=== PATIENT | male | born 1975 | race Caucasian/White ===

== ENCOUNTER 2019-08-24 11:09 | Inpatient (IN) | payer OTHER ==
--- NOTE | 2019-08-24 11:23 | BHS.RME ---
Substance Use & Tx History - Substance Use History Heroin Substance amount: 1 gram Frequency of use: Daily Substance route: Inhalation (ex: sniffing or snorting) Date of Last Use: 08/24/19 Cocaine- Powder Substance amount: 1/2 gram Frequency of use: Daily Substance route: Inhalation (ex: sniffing or snorting) Date of Last Use: 08/24/19 - Last Treatment Date of last treatment: none Physical/Psych/Mental Status - Behavior General Behavior: Increased activity (restlessness, agitation) Eye Contact: Normal - Cooperativeness Cooperativeness: Cooperative - Thinking Thought Processes: Tight, Logical, Goal Directed - Physical Health Problems Is patient presently having any pain?: No Does patient presently have any injuries (include location): No Does patient currently have a fever: No Is patient : No COWS - Scale Resting Pulse: 0= [place] 80 or Below Sweatin= No chills or Flushing Restless Observation: 0= Sits Still Pupil Size: 1= Pupils >than Normal Bone or Joint Aches: 1= Mild Discomfort Runny Nose/ Eye Tearin= Nasal Congestion GI Upset > 30mins: 1= Stomach Cramp Tremor Observation: 1= Tremor [place], Not Seen Yawning Observation: 1= 1-2x During Session Anxiety or Irritability: 2=Irritable/Anxious Goose Flesh Skin: 3=Piloerection COWS Score: 11 CIWA Nausea/Vomitin-Mild Nausea/No Vomiting Muscle Tremors: 3 Anxiety: 3 Agitation: 3 Paroxysmal Sweats: 3 Orientation: 0-Oriented Tacttile Disturbances: 0-None Auditory Disturbances: 0-None Visual Disturbances: 0-None Headache: 0-None Present CIWA-Ar Total Score: 13
--- NOTE | 2019-08-24 12:43 | HP ---
COWS - Scale Resting Pulse: 0= [place] 80 or Below Sweatin= No chills or Flushing Restless Observation: 0= Sits Still Pupil Size: 1= Pupils >than Normal Bone or Joint Aches: 1= Mild Discomfort Runny Nose/ Eye Tearin= Nasal Congestion GI Upset > 30mins: 1= Stomach Cramp Tremor Observation: 1= Tremor [place], Not Seen Yawning Observation: 1= 1-2x During Session Anxiety or Irritability: 2=Irritable/Anxious Goose Flesh Skin: 3=Piloerection COWS Score: 11 CIWA Score Nausea/Vomitin-Mild Nausea/No Vomiting Muscle Tremors: 3 Anxiety: 3 Agitation: 3 Paroxysmal Sweats: 3 Orientation: 0-Oriented Tacttile Disturbances: 0-None Auditory Disturbances: 0-None Visual Disturbances: 0-None Headache: 0-None Present CIWA-Ar Total Score: 13 - Admission Criteria OASAS Guidelines: Admission for Medically Managed Detox: Requires at least one of the followin. CIWA greater than 12 2. Seizures within the past 24 hours 3. Delirium tremens within the past 24 hours 4. Hallucinations within the past 24 hours 5. Acute intervention needed for co occurring medical disorder 6. Acute intervention needed for co occurring psychiatric disorder 7. Severe withdrawal that cannot be handled at a lower level of care (continued vomiting, continued diarrhea, abnormal vital signs) requiring intravenous medication and/or fluids 8. Admitting History and Physical - Admission Chief Complaint: "I want to better my life." History of Present Illness: 44 year old male with history of opioid dependence with withdrawal. He had been abstinence until 6 months ago attending [facility] outpatient counseling. He has not been in detox before. Heroin: 1 gram daily IN, started at age 22 and lst used 08/24/19 at 2AM. He has never overdosed but does not carry narcan Cocaine: 1/2 gram daily IN, started at age 21 and last used this morning at 2AM Nicotine; 1/2 pack daily, smoking since the age of 10 PMH: None Psurg: Lipoma removed R shoulder, L Ing Hernia Repair Psych: None Lives with girlfriend in [place]. He does had a DUI with drug possession case but no appointed court date. COWS=11 due to recent use this morning. Urine Tox: History Source: Patient Limitations to Obtaining History: No Limitations - Past Medical History Psych: Yes: Anxiety, Depression - Past Surgical History Past Surgical History: Yes: Hernia Repair Additional Past Surgical History: Lipoma removal right shoulder - Smoking History Smoking history: Current every day smoker Have you smoked in the past 12 months: Yes Aproximately how many cigarettes per day: 10 - Alcohol/Substance Use Hx Alcohol Use: Yes Number of Drinks Daily: 4 History of Substance Use: reports: Cocaine, Heroin Date of Last Use: 08/02/19 - Social History ADL: Independent Occupation: auto repair unemployed History of Recent Travel: No Admission [facility] Allergies/Adverse Reactions: Allergies Allergy/AdvReac Type Severity Reaction Status Date / Time No Known Allergies Allergy Verified 08/03/19 13:40 Exam Limitations: No Limitations - Ebola screening Have you traveled outside of the country in the last 21 days: No Have you had contact with anyone from an Ebola affected area: No Have you been sick,other than usual withdrawal symptoms: No Do you have a fever: No - Review of Systems Constitutional: Chills, Diaphoresis, Loss of Appetite EENT: reports: No Symptoms Reported Respiratory: reports: No Symptoms reported Cardiac: reports: No Symptoms Reported GI: reports: No Symptoms Reported : reports: No Symptoms Reported Musculoskeletal: reports: No Symptoms Reported Integumentary: reports: No Symptoms Reported Neuro: reports: No Symptoms reported Endocrine: reports: No Symptoms Reported Hematology: reports: No Symptoms Reported Psychiatric: reports: Judgement Intact, Mood/Affect Appropiate, Orientated x3, Anxious Other Systems: Reviewed and Negative Patient History - Patient Medical History Hx Anemia: No Hx Asthma: No Hx Chronic Obstructive Pulmonary Disease (COPD): No Hx Cancer: No Hx Cardiac Disorders: No Hx Congestive Heart Failure: No Hx Hypertension: No Hx Hypercholesterolemia: No Hx Pacemaker: No HX Cerebrovascular Accident: No Hx Seizures: No Hx Dementia: No Hx Diabetes: No Hx Gastrointestinal Disorders: No Hx Liver Disease: No Hx Genitourinary Disorders: No Hx Sexually Transmitted Disorders: No Hx Renal Disease (ESRD): No Hx Thyroid Disease: No Hx Human Immunodeficiency Virus (HIV): No Hx Hepatitis C: No Hx Depression: Yes Hx Suicide Attempt: No Hx Bipolar Disorder: No Hx Schizophrenia: No - Patient Surgical History Past Surgical History: Yes Hx Abdominal Surgery: Yes (Hernia Repair) Other Surgical History: Lipoma removal Anesthesia Reaction: No - PPD History Previous Implant?: Yes Documented Results: Negative w/o proof Implanted On Prior [facility] Admission?: No Date: 10/10/17 Results: negative PPD to be Administered?: Yes - Smoking Cessation Smoking history: Current every day smoker Have you smoked in the past 12 months: Yes Aproximately how many cigarettes per day: 10 Hx Chewing Tobacco Use: No Initiated information on smoking cessation: Yes 'Breaking Loose' booklet given: 08/24/19 - Substances abused Heroin Substance route: Inhalation Frequency: Daily Amount used: 1 gram Age of first use: 22 Date of last use: 08/24/19 Cocaine Substance route: Inhalation Frequency: Daily Amount used: 1/2 gram Age of first use: 21 Date of last use: 08/24/19 Cleared for Admission [facility] - Detox or Rehab [facility] Level of Care: Medically Managed Detox Regimen/Protocol: Methadone Claeared for Rehab Admission: No Screened but not Admitted - Documentation of Visit Screened but not Admitted: No Breathalyzer - Breathalyzer Breathalyzer: 0 Urine Drug Screen - Results Drug screen NEGATIVE: No Urine drug screen results: REAL-Cocaine, FEN-Fentanyl, MOP-Opiates Inpatient Rehab Admission - Rehab Decision to Admit Inpatient rehab admission?: No
[2019-08-24] MEDS ORDERED: ACETAMINOPHEN 325 MG TABLET (FP) PO PRN ×2 (12:49)
[2019-08-24] MEDS ORDERED: NICOTINE POLACRILEX 2 MG GUM BUC PRN (12:49)
[2019-08-24] MEDS ORDERED: MAGNESIUM HYDROX 2400MG/30ML ORAL SUSPENSION 30 ML CUP PO PRN (12:49)
[2019-08-24] MEDS ORDERED: cloNIDine HCL 0.1 MG TABLET PO PRN (12:49)
[2019-08-24] MEDS ORDERED: MAGNESIUM CITRATE 300 ML BOTTLE PO PRN (12:49)
[2019-08-24] MEDS ORDERED: METHOCARBAMOL 500 MG TABLET PO PRN (12:49)
[2019-08-24] MEDS ORDERED: MENTHOL/PHENOL 1 EACH UD MM PRN (12:49)
[2019-08-24] MEDS ORDERED: BISMUTH SUBSALICYLATE 524 MG/30 ML UD PO PRN (12:49)
[2019-08-24] MEDS ORDERED: MAG HYDROX/AL HYDROX/SIMETH 30 ML UNIT-DOSE CUP PO PRN (12:49)
[2019-08-24] MEDS ORDERED: IBUPROFEN 400 MG TABLET (FP) PO PRN (12:49)
[2019-08-24 13:35] VITALS: BMI 26.9
[2019-08-24] MEDS ORDERED: METHADONE HCL 10 MG TABLET (FOR DETOX USE ONLY) PO ONE (14:00)
[2019-08-24] MEDS ORDERED: ONDANSETRON *ODT* 4 MG TABLET SL ONE (14:00)
[2019-08-24] MEDS ORDERED: hydrOXYzine PAMOATE 25 MG CAPSULE (FP) PO SCH (14:00)
--- NOTE | 2019-08-24 14:22 | EKG ---
Test Reason : Blood Pressure : / mmHG Vent. Rate : 065 BPM Atrial Rate : 065 BPM P-R Int : 152 ms QRS Dur : 080 ms QT Int : 430 ms P-R-T Axes : 044 067 057 degrees QTc Int : 447 ms NORMAL SINUS RHYTHM NORMAL ECG NO PREVIOUS ECGS AVAILABLE Confirmed by MD Samson, Chapo ([id number]) on 08/24/2019 2:21:36 PM Referred By: Confirmed By:Chapo Davies MD
[2019-08-24] MEDS: PRENATAL VITAMINS W/ FOLIC ACID TABLET (FP) PO SCH (14:28)
[2019-08-24] MEDS: NICOTINE 7 MG/24 HOURS TOPICAL PATCH TD SCH (14:28)
[2019-08-24 17:32] LABS: HEMATOCRIT 39.8 % (35.4-49); HEMOGLOBIN 13.1 GM/dL (11.7-16.9); MCH 31.1 pg (25.7-33.7); MEAN CELL VOLUME 94.1 fl (80-96); MEAN PLT VOLUME 8.1 fl (7.5-11.1); PLATELET COUNT 318 K/MM3 (134-434); RBC 4.23 M/mm3 (4.00-5.60); RDW 14.5 % (11.9-15.9); WHITE BLOOD COUNT 6.3 K/mm3 (4.0-10.0)
[2019-08-24 17:43] LABS: ALBUMIN 4.2 g/dl (3.4-5.0); BILIRUBIN,TOTAL 0.5 mg/dL (0.2-1); BLOOD UREA NITROGEN 11.8 mg/dL (7-18); CALCIUM 9.6 mg/dL (8.5-10.1); CREATININE 0.9 mg/dL (0.55-1.3); POTASSIUM 4.2 mmol/L (3.5-5.1); TOT PROT 7.6 g/dl (6.4-8.2)
[2019-08-24] MEDS: hydrOXYzine PAMOATE 25 MG CAPSULE (FP) PO PRN (21:16)
[2019-08-24] MEDS: THIAMINE HCL 100 MG TABLET (FP) PO SCH (21:16)
[2019-08-24] MEDS: MELATONIN 5 MG TABLETS PO SCH (22:20)
[2019-08-25] MEDS ORDERED: METHADONE HCL 10 MG TABLET (FOR DETOX USE ONLY) ONE (09:03)
[2019-08-25] MEDS ORDERED: METHADONE HCL 5 MG TABLET (FOR DETOX USE ONLY) ONE (09:03)
--- NOTE | 2019-08-25 09:08 | PN ---
S COWS - Scale Resting Pulse: 0= [place] 80 or Below Sweatin= No chills or Flushing Restless Observation: 3= Extraneous Movement Pupil Size: 1= Pupils >than Normal Bone or Joint Aches: 2= Severe Diffuse Aches Runny Nose/ Eye Tearin= Runny Nose/Eyes GI Upset > 30mins: 3= Vomiting/Diarrhea Tremor Observation of Outstretched Hands: 2= Slight Tremor Visible Yawning Observation: 1= 1-2x During Session Anxiety or Irritability: 2=Irritable/Anxious Goose Flesh Skin: 0=Smooth Skin COWS Score: 16 [facility] Progress Note (SOAP) Subjective: alert,irritable,anxious,tremor,pain in the body and back,,nausea,diarrhea Objective: 08/25/19 09:07 Vital Signs Temperature 98 F 08/25/19 05:06 Pulse Rate 55 L 08/25/19 05:06 Respiratory Rate 16 08/25/19 05:06 Blood Pressure 147/87 08/25/19 05:06 O2 Sat by Pulse Oximetry (%) 99 08/25/19 05:06 Laboratory Last Values WBC 6.3 K/mm3 (4.0-10.0) 08/24/19 13:00 RBC 4.23 M/mm3 (4.00-5.60) 08/24/19 13:00 Hgb 13.1 GM/dL (11.7-16.9) 08/24/19 13:00 Hct 39.8 % (35.4-49) 08/24/19 13:00 MCV 94.1 fl (80-96) 08/24/19 13:00 MCH 31.1 pg (25.7-33.7) 08/24/19 13:00 MCHC 33.0 g/dl (32.0-35.9) 08/24/19 13:00 RDW 14.5 % (11.9-15.9) 08/24/19 13:00 Plt Count 318 K/MM3 (134-434) 08/24/19 13:00 MPV 8.1 fl (7.5-11.1) 08/24/19 13:00 Sodium 138 mmol/L (136-145) 08/24/19 13:00 Potassium 4.2 mmol/L (3.5-5.1) 08/24/19 13:00 Chloride 106 mmol/L (98-107) 08/24/19 13:00 Carbon Dioxide 26 mmol/L (21-32) 08/24/19 13:00 Anion Gap 6 MMOL/L (8-16) L 08/24/19 13:00 BUN 11.8 mg/dL (7-18) 08/24/19 13:00 Creatinine 0.9 mg/dL (0.55-1.3) 08/24/19 13:00 Est GFR (CKD-EPI)AfAm 120.81 08/24/19 13:00 Est GFR (CKD-EPI)NonAf 104.24 08/24/19 13:00 Random Glucose 107 mg/dL (74-106) H 08/24/19 13:00 Calcium 9.6 mg/dL (8.5-10.1) 08/24/19 13:00 Total Bilirubin 0.5 mg/dL (0.2-1) 08/24/19 13:00 AST 17 U/L (15-37) 08/24/19 13:00 ALT 29 U/L (13-61) 08/24/19 13:00 Alkaline Phosphatase 89 U/L (45-117) 08/24/19 13:00 Total Protein 7.6 g/dl (6.4-8.2) 08/24/19 13:00 Albumin 4.2 g/dl (3.4-5.0) 08/24/19 13:00 Syphilis Serology Non-reactive (NONREACTIVE) 08/24/19 13:00 Assessment: 08/25/19 09:07 withdrawal symptom Plan: continue detox methadone regimen,to add valum 10 mgs po q 4 hrs prn for severe withdrawal
[2019-08-25] MEDS ORDERED: METHADONE (DETOX) 20 MG, METHADONE (DETOX) 5 MG PO ONE (10:00)
[2019-08-25] MEDS: PRENATAL VITAMINS W/ FOLIC ACID TABLET (FP) PO SCH (11:08)
[2019-08-25] MEDS: NICOTINE 7 MG/24 HOURS TOPICAL PATCH TD SCH (11:08)
[2019-08-25] MEDS: THIAMINE HCL 100 MG TABLET (FP) PO SCH (22:42)
[2019-08-25] MEDS: diazePAM 5 MG TABLET PO PRN (22:42)
[2019-08-25] MEDS: MELATONIN 5 MG TABLETS PO SCH (23:11)
[2019-08-26] MEDS ORDERED: METHADONE HCL 10 MG TABLET (FOR DETOX USE ONLY) PO ONE (10:00)
--- NOTE | 2019-08-26 10:16 | PN ---
S COWS - Scale Resting Pulse: 0= [place] 80 or Below Sweatin= No chills or Flushing Restless Observation: 1= Difficult to Sit Still Pupil Size: 1= Pupils >than Normal Bone or Joint Aches: 1= Mild Discomfort Runny Nose/ Eye Tearin= Nasal Congestion GI Upset > 30mins: 2= Nausea/Diarrhea Tremor Observation of Outstretched Hands: 2= Slight Tremor Visible Yawning Observation: 1= 1-2x During Session Anxiety or Irritability: 2=Irritable/Anxious Goose Flesh Skin: 0=Smooth Skin COWS Score: 11 S Progress Note (SOAP) Subjective: alert,irritable,anxious,interrupted sleep,pain in the body and back Objective: 08/26/19 10:13 Vital Signs Temperature 98 F 08/26/19 08:55 Pulse Rate 62 08/26/19 08:55 Respiratory Rate 16 08/26/19 08:55 Blood Pressure 126/77 08/26/19 08:55 O2 Sat by Pulse Oximetry (%) 98 08/26/19 06:10 Laboratory Last Values WBC 6.3 K/mm3 (4.0-10.0) 08/24/19 13:00 RBC 4.23 M/mm3 (4.00-5.60) 08/24/19 13:00 Hgb 13.1 GM/dL (11.7-16.9) 08/24/19 13:00 Hct 39.8 % (35.4-49) 08/24/19 13:00 MCV 94.1 fl (80-96) 08/24/19 13:00 MCH 31.1 pg (25.7-33.7) 08/24/19 13:00 MCHC 33.0 g/dl (32.0-35.9) 08/24/19 13:00 RDW 14.5 % (11.9-15.9) 08/24/19 13:00 Plt Count 318 K/MM3 (134-434) 08/24/19 13:00 MPV 8.1 fl (7.5-11.1) 08/24/19 13:00 Sodium 138 mmol/L (136-145) 08/24/19 13:00 Potassium 4.2 mmol/L (3.5-5.1) 08/24/19 13:00 Chloride 106 mmol/L (98-107) 08/24/19 13:00 Carbon Dioxide 26 mmol/L (21-32) 08/24/19 13:00 Anion Gap 6 MMOL/L (8-16) L 08/24/19 13:00 BUN 11.8 mg/dL (7-18) 08/24/19 13:00 Creatinine 0.9 mg/dL (0.55-1.3) 08/24/19 13:00 Est GFR (CKD-EPI)AfAm 120.81 08/24/19 13:00 Est GFR (CKD-EPI)NonAf 104.24 08/24/19 13:00 Random Glucose 107 mg/dL (74-106) H 08/24/19 13:00 Calcium 9.6 mg/dL (8.5-10.1) 08/24/19 13:00 Total Bilirubin 0.5 mg/dL (0.2-1) 08/24/19 13:00 AST 17 U/L (15-37) 08/24/19 13:00 ALT 29 U/L (13-61) 08/24/19 13:00 Alkaline Phosphatase 89 U/L (45-117) 08/24/19 13:00 Total Protein 7.6 g/dl (6.4-8.2) 08/24/19 13:00 Albumin 4.2 g/dl (3.4-5.0) 08/24/19 13:00 Syphilis Serology Non-reactive (NONREACTIVE) 08/24/19 13:00 COVID-19 (MANI) Not detected (Not Detected) 08/24/19 13:40 Assessment: 08/26/19 10:14 withdrawal symptom Plan: continue detox methadone regimen,continue valium 10 mgs po q 4hs prn for 72 hrs
[2019-08-26] MEDS: PRENATAL VITAMINS W/ FOLIC ACID TABLET (FP) PO SCH (11:01)
[2019-08-26] MEDS: NICOTINE 7 MG/24 HOURS TOPICAL PATCH TD SCH (11:02)
[2019-08-26] MEDS: diazePAM 5 MG TABLET PO PRN ×2 (18:41→23:02)
[2019-08-26] MEDS: THIAMINE HCL 100 MG TABLET (FP) PO SCH (22:04)
[2019-08-26] MEDS: MELATONIN 5 MG TABLETS PO SCH (22:04)
[2019-08-27] MEDS ORDERED: METHADONE HCL 5 MG TABLET (FOR DETOX USE ONLY) ONE (09:10)
[2019-08-27] MEDS ORDERED: METHADONE HCL 10 MG TABLET (FOR DETOX USE ONLY) ONE (09:11)
[2019-08-27] MEDS ORDERED: METHADONE (DETOX) 10 MG, METHADONE (DETOX) 5 MG PO ONE (10:00)
[2019-08-27] MEDS: PRENATAL VITAMINS W/ FOLIC ACID TABLET (FP) PO SCH (10:15)
[2019-08-27] MEDS: NICOTINE 7 MG/24 HOURS TOPICAL PATCH TD SCH (10:15)
--- NOTE | 2019-08-27 10:44 | PN ---
S COWS - Scale Resting Pulse: 0= [place] 80 or Below Sweatin= No chills or Flushing Restless Observation: 1= Difficult to Sit Still Pupil Size: 1= Pupils >than Normal Bone or Joint Aches: 2= Severe Diffuse Aches Runny Nose/ Eye Tearin= Nasal Congestion GI Upset > 30mins: 2= Nausea/Diarrhea Tremor Observation of Outstretched Hands: 2= Slight Tremor Visible Yawning Observation: 1= 1-2x During Session Anxiety or Irritability: 2=Irritable/Anxious Goose Flesh Skin: 0=Smooth Skin COWS Score: 12 S Progress Note (SOAP) Subjective: alert,irritable,anxious,interrupted sleep,pain in the body and back,nausea Objective: 08/27/19 10:42 Last Vital Signs Temp Pulse Resp BP Pulse Ox 97.8 F 65 16 127/77 98 08/27/19 08:40 08/27/19 08:40 08/27/19 08:40 08/27/19 08:40 08/27/19 06:25 08/27/19 10:42 Vital Signs Temperature 97.8 F 08/27/19 08:40 Pulse Rate 65 08/27/19 08:40 Respiratory Rate 16 08/27/19 08:40 Blood Pressure 127/77 08/27/19 08:40 O2 Sat by Pulse Oximetry (%) 98 08/27/19 06:25 08/27/19 10:43 Laboratory Last Values WBC 6.3 K/mm3 (4.0-10.0) 08/24/19 13:00 RBC 4.23 M/mm3 (4.00-5.60) 08/24/19 13:00 Hgb 13.1 GM/dL (11.7-16.9) 08/24/19 13:00 Hct 39.8 % (35.4-49) 08/24/19 13:00 MCV 94.1 fl (80-96) 08/24/19 13:00 MCH 31.1 pg (25.7-33.7) 08/24/19 13:00 MCHC 33.0 g/dl (32.0-35.9) 08/24/19 13:00 RDW 14.5 % (11.9-15.9) 08/24/19 13:00 Plt Count 318 K/MM3 (134-434) 08/24/19 13:00 MPV 8.1 fl (7.5-11.1) 08/24/19 13:00 Sodium 138 mmol/L (136-145) 08/24/19 13:00 Potassium 4.2 mmol/L (3.5-5.1) 08/24/19 13:00 Chloride 106 mmol/L (98-107) 08/24/19 13:00 Carbon Dioxide 26 mmol/L (21-32) 08/24/19 13:00 Anion Gap 6 MMOL/L (8-16) L 08/24/19 13:00 BUN 11.8 mg/dL (7-18) 08/24/19 13:00 Creatinine 0.9 mg/dL (0.55-1.3) 08/24/19 13:00 Est GFR (CKD-EPI)AfAm 120.81 08/24/19 13:00 Est GFR (CKD-EPI)NonAf 104.24 08/24/19 13:00 Random Glucose 107 mg/dL (74-106) H 08/24/19 13:00 Calcium 9.6 mg/dL (8.5-10.1) 08/24/19 13:00 Total Bilirubin 0.5 mg/dL (0.2-1) 08/24/19 13:00 AST 17 U/L (15-37) 08/24/19 13:00 ALT 29 U/L (13-61) 08/24/19 13:00 Alkaline Phosphatase 89 U/L (45-117) 08/24/19 13:00 Total Protein 7.6 g/dl (6.4-8.2) 08/24/19 13:00 Albumin 4.2 g/dl (3.4-5.0) 08/24/19 13:00 Syphilis Serology Non-reactive (NONREACTIVE) 08/24/19 13:00 COVID-19 (MANI) Not detected (Not Detected) 08/24/19 13:40 Assessment: 08/27/19 10:42 withdrawal symptom Plan: continue detox methadone regimen,valium 10 mgs po q 4 hrs prn for severe withdrawal
[2019-08-27] MEDS: diazePAM 5 MG TABLET PO PRN (18:41)
[2019-08-27] MEDS: MELATONIN 5 MG TABLETS PO SCH (22:13)
[2019-08-27] MEDS: hydrOXYzine PAMOATE 25 MG CAPSULE (FP) PO PRN (22:14)
[2019-08-27] MEDS: THIAMINE HCL 100 MG TABLET (FP) PO SCH (22:15)
[2019-08-28 09:30] VITALS: BP 133/76; PULSE 71; TEMP 97.5
[2019-08-28] MEDS ORDERED: METHADONE HCL 5 MG TABLET (FOR DETOX USE ONLY) PO ONE (09:30)
[2019-08-28] MEDS: PRENATAL VITAMINS W/ FOLIC ACID TABLET (FP) PO SCH (09:47)
[2019-08-28] MEDS: NICOTINE 7 MG/24 HOURS TOPICAL PATCH TD SCH (09:48)
[2019-08-28] MEDS ORDERED: METHADONE HCL 10 MG TABLET (FOR DETOX USE ONLY) PO ONE (10:00)
--- NOTE | 2019-08-28 16:30 | DS ---
[facility] Detox Discharge Summary Admission Date: 08/24/19 Discharge Date: 08/28/19 - History Present History: Cocaine Dependence, Opioid Dependence Additional Comments: Since Patient reports that current withdrawal / detox symptoms are minimal in degree and that he feels well overall, at Patients request, he was granted an early discharge from Detox unit today (Discharge from Detox originally scheduled for tomorrow) so that he may return home to attend to personal matters. Final dose of Methadone, 5 mg ordered. Patient remained on Detox unit until after dose was administered prior to leaving unit. Patient notes that he will return to [facility] ([place], [place]), where he was previously a client, for aftercare. At time of discharge, Patient reported history of prescription for Suboxone on outpatient basis and that he still has some doses at home and that he has not taken this medication last approx. 2 weeks. Patient advised to consult medical provider at [facility] for further evaluation after discharge and NOT to take any of the Suboxone until after consultation with Suboxone medical provider. Patient verbalized understanding of all recommendations presented to him today. Patient was discharged form Detox Unit in stable medical condition. Pertinent Past History: History of Depression, Nicotine Dependence. - Physical Exam Results Vital Signs: Vital Signs Temperature 97.5 F L 08/28/19 08:41 Pulse Rate 71 08/28/19 08:41 Respiratory Rate 17 08/28/19 08:41 Blood Pressure 133/76 08/28/19 08:41 O2 Sat by Pulse Oximetry (%) 100 08/28/19 05:40 Pertinent Admission Physical Exam Findings: WITHDRAWAL SYMPTOMS. Laboratory Tests 08/24/19 08/24/19 08/24/19 13:00 13:00 13:00 WBC 6.3 RBC 4.23 Hgb 13.1 Hct 39.8 MCV 94.1 MCH 31.1 MCHC 33.0 RDW 14.5 Plt Count 318 MPV 8.1 Sodium 138 Potassium 4.2 Chloride 106 Carbon Dioxide 26 Anion Gap 6 L BUN 11.8 Creatinine 0.9 Est GFR (CKD-EPI)AfAm 120.81 Est GFR (CKD-EPI)NonAf 104.24 Random Glucose 107 H Calcium 9.6 Total Bilirubin 0.5 AST 17 ALT 29 Alkaline Phosphatase 89 Total Protein 7.6 Albumin 4.2 Syphilis Serology Non-reactive COVID-19 (MANI) 08/24/19 13:40 WBC RBC Hgb Hct MCV MCH MCHC RDW Plt Count MPV Sodium Potassium Chloride Carbon Dioxide Anion Gap BUN Creatinine Est GFR (CKD-EPI)AfAm Est GFR (CKD-EPI)NonAf Random Glucose Calcium Total Bilirubin AST ALT Alkaline Phosphatase Total Protein Albumin Syphilis Serology COVID-19 (MANI) Not detected Lab Results noted. - Treatment Hospital Course: Detox Protocol Followed, Detoxed Safely, Responded well, Discharged Condition Good Patient has Accepted a Rehab Referral to: Pt. returning to previous [facility] ([place], [place]). - Medication Discharge Medications: Ambulatory Orders NK [No Known Home Medication] 08/24/19 - Diagnosis (1) Cocaine dependence Status: Chronic Qualifiers: Substance use status: uncomplicated Qualified Code(s): F14.20 - Cocaine dependence, uncomplicated (2) Opioid dependence, uncomplicated Status: Acute - AMA Did Patient Leave Against Medical Advice: No
[2019-08-29] MEDS ORDERED: METHADONE HCL 5 MG TABLET (FOR DETOX USE ONLY) PO ONE (06:00)
== END 2019-08-28 10:05 | disposition home or self-care (01) | DRG 773 ==
LOC: YASAS 11:09 → Y6N 13:33
PROVIDERS: ADMIT Allergy & Immunology; ATTEND Allergy & Immunology
PROC: HZ2ZZZZ Detoxification Services for Substance Abuse Treatment (ICD-10-PCS; principal; 2019-08-24)
DX: F11.23 Opioid dependence with withdrawal (principal); F14.20 Cocaine dependence, uncomplicated; F17.210 Nicotine dependence, cigarettes, uncomplicated
CPT/HCPCS: 36415; 80053; 85027; 86780; 93005; 93010; J0735; U0003